=== PATIENT | male | born 1955 | race Caucasian/White ===

== ENCOUNTER 2020-07-29 04:11 | Emergency (ER) | payer BC | END 2020-07-29 06:27 | disposition home or self-care (01) | LOC: ED 04:11 | DX: S51.812A Laceration without foreign body of left forearm, initial encounter (principal); S41.112A Laceration without foreign body of left upper arm, initial encounter; M54.2 Cervicalgia; W22.8XXA Striking against or struck by other objects, initial encounter; F17.200 Nicotine dependence, unspecified, uncomplicated | CPT/HCPCS: 70450; 72125; 73060; 73090; 90471; 90715; 96372; 99284-25; J2270 ==

== ENCOUNTER 2023-12-22 09:59 | Emergency (ER) | payer OTHER ==
[~2023-12-22] VITALS: Ht 182.9 cm; Wt 81.6 kg
[2023-12-22] MEDS ORDERED: CEPHALEXIN500 M1 PO (11:23)
[2023-12-22 11:28] VITALS: BP 155/84
== END 2023-12-22 11:28 | disposition home or self-care (01) ==
LOC: ED 09:59
DX: S60.457A Superficial foreign body of left little finger, initial encounter (principal); W26.8XXA Contact with other sharp object(s), not elsewhere classified, initial encounter; F17.200 Nicotine dependence, unspecified, uncomplicated
CPT/HCPCS: 64450; 99283-25